=== PATIENT | male | born 1990 | race African-American/Black ===

== ENCOUNTER 2022-09-13 10:18 | Day surgery (SDC) | payer SELFPAY ==
[2022-09-13] VITALS (7 sets, daily range): BP systolic 104–113; BP diastolic 59–82; PULSE 86–104; TEMP 97.2–99.1
[~2022-09-13] VITALS: Ht 165.1 cm; Wt 57.8 kg
--- NOTE | 2022-09-13 14:05 | NUR ---
1255- PATIENT RETURNS TO [facility] [place] [facility] VIA CART. PT AWAKE AND ALERT. RESPIRATIONS UNLABORED. AMBULATED TO RECLINER CHAIR WITH 2:1 SBA. PT DENIES NAUSEA OR ABDOMINAL PAIN. HOOKED UP TO MONITOR AND VS OBTAINED. CALL LIGHT AT SIDE AND FAMILY NOTIFIED THAT THE PATIENT WAS DONE PER PT REQUEST. mOTHER AND GIRLFRIEND ARRIVED SHORTLY AFTER. 1259- PATIENT TOLERATING GRAPE JUICE AND TWO WARM MUFFINS WITHOUT NAUSEA OR DIFFICULTY SWALLOWING. 1312- D/C INSTRUCTIONS REVIEWED WITH PATIENT. PT VERBALIZED UNDERSTANDING AND A COPY OF INSTRUCTIONS PROVIDED IN D/C FOLDER. 1332- PATIENT DRESSES SELF. 1353- DR. HART IN ROOM SPEAKING WITH PATIENT. 1405- PATIENT DISCHARGED FROM UNIT VIA W/C TO A PERSONAL VEHICLE. PT LEFT HOSPITAL IN STABLE CONDITION.
== END 2022-09-13 14:05 | disposition home or self-care (01) ==
LOC: SDCO 10:18
DX: K62.89 Other specified diseases of anus and rectum (principal); K29.51 Unspecified chronic gastritis with bleeding; K52.9 Noninfective gastroenteritis and colitis, unspecified; R19.4 Change in bowel habit; R93.3 Abnormal findings on diagnostic imaging of other parts of digestive tract
CPT/HCPCS: J2704; J7120